=== PATIENT | female | born 1985 | race Caucasian/White ===

== ENCOUNTER 2018-03-18 19:37 | Emergency (ER) | payer OTHER ==
[2018-03-18 19:45] VITALS: BP 122/75
[2018-03-18 21:28] LABS: ABS Basophils 0.1 10^3/ul (0-0.2); ABS Eosinophils 0.6 10^3/ul (0-0.6); ABS Lymphocytes 3.9 10^3/ul (1.0-4.8); ABS Neutrophils 9.5 10^3/ul (1.5-7.7); ABS Nucleated RBC 0 10^3/ul; Eosinophil % 3.8 % (0-6); Hematocrit 43 % (35-47); Hemoglobin 14.8 g/dl (12.0-16.0); Lymphocyte % 25.7 % (25-47); Mean Corpuscular HGB Conc 34 g/dl (31-36); Mean Corpuscular Hemoglobin 32 pg (27-31); Mean Corpuscular Volume 93 fL (80-97); Mean Platelet Volume 9.6 um3 (7.4-10.4); Nucleated Red Blood Cells % 0; Platelet Count 135 10^3/ul (150-450); Red Blood Count 4.66 10^6/ul (4.0-5.4); Red Cell Distribution Width 13 % (10.5-15)
[2018-03-18 21:46] LABS: EGFR Non-African American 103.3 (>60)
--- NOTE | 2018-03-18 21:52 | RAD ---
Indication: Vaginal bleeding. Real-time sonography of the was performed. There is a single intrauterine gestation with a crown-rump length of 1.6 cm corresponding to gestational age of 8 weeks 0 days. Gestational sac measures 2.9 cm corresponding to gestational age of 8 weeks 1 day. Estimated date of delivery is October 27, 2018. heart activity is noted at 167 bpm. Amniotic fluid is within normal limits. The right ovary measures 2.1 x 1.1 x 1.5 cm. Left ovary measures 2.9 x 1.9 x 1.6 cm. No adnexal masses are noted. IMPRESSION: Single intrauterine gestation with a gestational age of 8 weeks 1 day. Estimated date delivery is October 27, 2018.
[2018-03-18 22:30] LABS: Urine Appearance Clear; Urine Blood Negative (Negative); Urine Color Straw; Urine Ketones Negative (Negative); Urine Protein Negative (Negative); Urine Specific Gravity 1.004 (1.010-1.030); Urine Urobilinogen Negative (Negative)
--- NOTE | 2018-03-19 19:38 | ED ---
Yumi Sprague Jade, scribed for Austin Saravia MD on 03/18/18 at 2154 . - HPI Summary HPI Summary: Pt is a 32 y/o female who presents to the ED with vaginal bleeding since this morning at 8:00. Pt is 8 weeks , and had spotting and cramping this morning, which is now resolved. She also notes mucus in stool and mild nausea, but denies any pain currently. PMHx miscarriage (2017). SHx smoking, quit 1 week ago. . - History of Current Complaint Chief Complaint: EDOBProblems Stated Complaint: 8 WKS PREG/BLEEDING/CRAMPING Time Seen by Provider: 03/18/18 20:40 Hx Obtained From: Patient Chief Complaint: Vaginal Bleeding, Other: - Cramping Onset/Duration: Started Hours Ago - This morning, 9:00 Severity: Mild Current Severity: None Pain Intensity: 0 Location of Pain: None Character: Cramping Aggravating Factors: Nothing Alleviating Factors: Other: - Spontaneously resolved Associated Signs and Symptoms: Positive: Nausea - Mild, Vaginal Bleeding or Discharge - Spotting, Other: - Mucus in stool - Allergies/Home Medications Allergies/Adverse Reactions: Allergies Allergy/AdvReac Type Severity Reaction Status Date / Time No Known Allergies Allergy Verified 03/18/18 19:45 Home Medications: Home Medications Vitamin TAB* 1 tab PO DAILY 03/18/18 [History Confirmed 03/18/18] PMH/Surg Hx/FS Hx/Imm Hx Cardiovascular History: Denies: Hx Hypertension GI History: Reports: Other GI Disorders - UTI History: Reports: Other Problems/Disorders - Miscarriage Infectious Disease History: No Infectious Disease History: Denies: History Other Infectious Disease, Traveled Outside the [place] in Last 30 Days - Family History Known Family History: Negative: Diabetes - Social History Alcohol Use: None Substance Use Type: Reports: None Smoking Status (MU): Former Smoker Have You Smoked in the Last Year: No Review of Systems Positive: Abdominal Pain - Cramping - resolved, Nausea - Mild, Other - Mucous in stool Positive: other - Vaginal spotting - resolved All Other Systems Reviewed And Are Negative: Yes Physical Exam - Summary Physical Exam Summary: VITAL SIGNS: Reviewed. GENERAL: ~Patient is a well-developed and nourished female who is lying comfortable in the stretcher. Patient is not in any acute respiratory distress. HEAD AND FACE: No signs of trauma. No ecchymosis, hematomas or skull depressions. No sinus tenderness. EYES: PERRLA, EOMI x 2, No injected conjunctiva, no nystagmus. EARS: Hearing grossly intact. Ear canals and tympanic membranes are within normal limits. MOUTH: Oropharynx within normal limits. NECK: Supple, trachea is midline, no adenopathy, no JVD, no carotid bruit, no c- spine tenderness, neck with full ROM. CHEST: Symmetric, no tenderness at palpation LUNGS: Clear to auscultation bilaterally. No wheezing or crackles. CVS: Regular rate and rhythm, S1 and S2 present, no murmurs or gallops appreciated. ABDOMEN: Soft, non-tender. No signs of distention. No rebound no guarding, and no masses palpated. Bowel sounds are normal. EXTREMITIES: FROM in all major joints, no edema, no cyanosis or clubbing. NEURO: Alert and oriented x 3. No acute neurological deficits. Speech is normal and follows commands. SKIN: Dry and warm - Physical Exam Triage Information Reviewed: Yes Vital Signs On Initial Exam: Initial Vitals Temp Pulse Resp BP Pulse Ox 98.3 F 60 16 122/75 100 03/18/18 19:40 03/18/18 19:40 03/18/18 19:40 03/18/18 19:40 03/18/18 19:40 a Vital Signs Reviewed: Yes Diagnostics - Vital Signs Vital Signs Temp Pulse Resp BP Pulse Ox 03/18/18 19:40 98.3 F 60 16 122/75 100 - Laboratory Lab Results: Lab Results 03/18/18 03/18/18 Range/Units 21:18 21:18 WBC 15.0 H (3.5-10.8) 10^3/ul RBC 4.66 (4.0-5.4) 10^6/ul Hgb 14.8 (12.0-16.0) g/dl Hct 43 (35-47) % MCV 93 (80-97) fL MCH 32 H (27-31) pg MCHC 34 (31-36) g/dl RDW 13 (10.5-15) % Plt Count 135 L (150-450) 10^3/ul MPV 9.6 (7.4-10.4) um3 Neut % (Auto) 63.4 (38-83) % Lymph % (Auto) 25.7 (25-47) % [place] % (Auto) 6.3 (0-7) % Eos % (Auto) 3.8 (0-6) % Baso % (Auto) 0.8 (0-2) % Absolute Neuts (auto) 9.5 H (1.5-7.7) 10^3/ul Absolute Lymphs (auto) 3.9 (1.0-4.8) 10^3/ul Absolute Monos (auto) 1.0 H (0-0.8) 10^3/ul Absolute Eos (auto) 0.6 (0-0.6) 10^3/ul Absolute Basos (auto) 0.1 (0-0.2) 10^3/ul Absolute Nucleated RBC 0 10^3/ul Nucleated RBC % 0 Blood Type A Positive Antibody Screen Pending Result Diagrams: 03/18/18 21:18 03/18/18 21:18 Lab Statement: Any lab studies that have been ordered have been reviewed, and results considered in the medical decision making process. - Ultrasound No standard instances Ultrasound Interpretation: Positive (See Comments) - US: Single intrauterine gestation with a gestational age of 8 weeks 1 day. Estimated date delivery is October 27, 2018. ED physician reviewed this radiology report. Ultrasound Interpretation Completed By: Radiologist Re-Evaluation - Re-Evaluation First Eval Re-Evaluation Time: 22:50 Change: Improved Comment: Discussed results and discharge. Course/Dx - Course Course Of Treatment: Pt is a 32 y/o female who presents to the ED with vaginal bleeding since this morning at 8:00, now resolved. Pt is 8 weeks , and had spotting, cramping, mucus in stool, and mild nausea this morning. She denies any pain currently. PMHx miscarriage (2017). SHx smoking, quit 1 week ago. . A US showed a single intrauterine gestation with a gestational age of 8 weeks 1 day, and estimated date delivery is October 27, 2018. The first re-eval showed improved status, and results were discussed. Patient will be discharged with a dx of threatened miscarriage, and is to follow up with her [facility]. Patient is agreeable with this plan. - Diagnoses Provider Diagnoses: Threatened miscarriage Discharge - Sign-Out/Discharge Documenting (check all that apply): Discharge/Admit/Transfer - Discharge - Discharge Plan Condition: Stable Disposition: HOME Patient Education Materials: Threatened Miscarriage (ED) Referrals: No Primary Care Phys,NOPCP [Primary Care Provider] - [facility] [Outside] - 3 Days Additional Instructions: RETURN TO EMERGENCY DEPARTMENT FOR ANY NEW OR WORSENING SYMPTOMS. Follow up with your [facility] in 3 days. The documentation as recorded by the Yumi butler Jade accurately reflects the service I personally performed and the decisions made by me, Austin Saravia MD.
== END 2018-03-18 22:59 | disposition home or self-care (01) ==
LOC: ED 19:37
DX: O20.0 Threatened abortion (principal); R11.0 Nausea; R19.5 Other fecal abnormalities; R10.84 Generalized abdominal pain; Z3A.08 8 weeks gestation of pregnancy; Z87.440 Personal history of urinary (tract) infections; Z87.891 Personal history of nicotine dependence
CPT/HCPCS: 36415; 76801; 80053; 81003; 81015; 84702; 85025; 86850; 86900; 86901; 87086; 99282